=== PATIENT | male | born 1940 | race Caucasian/White ===

== ENCOUNTER 2017-07-07 20:31 | Emergency (ER) | payer OTHER ==
[~2017-07-07 20:31] MED LIST: ADVAIR 250/501 DISK IH; ASPIR 8181 M1 PO; CENTRUM SILVER1 EAC3 PO; COMPAZINE10 MG PO; Feosol PO; Flagyl PO; GLUCOPHAGE500 MG PO; Glucophage PO; HYZAAR 100-21 TABLET PO; Hyzaar 100-25 PO; IMODIUM MS REL1 EACH PO; LEVAQUIN500 MG PO; METFORMIN HCL500 M1 PO; METOPROLOL SUC100 MG PO; NIFEDICAL XL30 MG PO; PROCARDIA XL30 MG PO; Procardia XL,Adalat PO; SIMVASTATIN20 MG PO; TESSALON PERLE100 MG PO; TOPROL XL100 MG PO; Vicodin,Norco 5/325 PO; XELODA500 MG PO; ZOCOR20 MG PO; ZOFRAN8 MG PO; Zocor PO
== END 2017-07-08 00:49 ==
LOC: EME 20:31
DX: I46.9 Cardiac arrest, cause unspecified (principal); J81.1 Chronic pulmonary edema; J44.9 Chronic obstructive pulmonary disease, unspecified; Z85.038 Personal history of other malignant neoplasm of large intestine
CPT/HCPCS: 80048; 81003; 82150; 83605; 83690; 84484; 85025; 85610; 85730; 86850; 86900; 86901; 87040; 99281; 99285; C1751; G0480